=== PATIENT | female | born 1955 | race Two or more races ===

== ENCOUNTER 2024-06-10 10:02 | Emergency (ER) | payer MEDICAID, OTHER ==
[~2024-06-10] VITALS: Ht 144.8 cm; Wt 95.0 kg
[2024-06-10 12:08] LABS: Basophils # (auto) 0 10 ^3/uL (0-0.2); Basophils % (auto) 0.4 % (0.0-2.0); Eosinophils # (auto) 0.1 10 ^3/uL (0-0.8); Eosinophils % (auto) 1.9 % (0.0-7.0); Hematocrit 36.9 % (36.0-46.0); Hemoglobin 12.2 g/dL (12.2-16.2); Lymphocytes # (auto) 1.4 10 ^3/uL (0.4-5.4); Lymphocytes % (auto) 18.7 % (10.0-50.0); Mean Corpuscular Hemoglobin 28.2 pg (28.0-32.0); Mean Corpuscular Volume 85.4 fL (80.0-100.0); Monocytes # (auto) 0.6 10 ^3/uL (0-1.3); Monocytes % (auto) 8.3 % (0.0-12.0); Neutrophils # (auto) 5.3 10 ^3/uL (1.6-8.6); Neutrophils % (auto) 70.7 % (37.0-80.0); Red Blood Cells 4.32 10^6/uL (4.0-5.20); Red Cell Distribution Width 14.6 % (11.8-14.3); White Blood Cell 7.6 10^3/uL (4.4-10.8)
[2024-06-10 12:32] LABS: Alanine Aminotransferase 14 U/L (7-40); Albumin 3.8 g/dL (3.2-4.8); Alkaline Phosphatase 109 U/L (46-116); Anion Gap 6 (5-15); Aspartate Aminotransferase 9 U/L (13-40); BUN/Creatinine Ratio 31.1 (10.0-20.0); Bilirubin, Total 0.4 mg/dL (0.2-1.0); Blood Urea Nitrogen 19 mg/dL (9-23); Calcium 8.9 mg/dL (8.7-10.4); Carbon Dioxide 28 mmol/L (20-30); Chloride 108 mmol/L (98-107); Glucose 136 mg/dL (74-106); Potassium 3.6 mmol/L (3.5-5.1); Sodium 142 mmol/L (136-145); Total Protein 6.3 g/dL (5.7-8.2)
[2024-06-10] MEDS ORDERED: NAPR-1335 PO (13:26)
[2024-06-10] MEDS ORDERED: DOCU-94 PO (13:26)
[2024-06-10] MEDS ORDERED: LIDO5DIS21 TOP (13:26)
[2024-06-10] MEDS ORDERED: HYDR-4902 PO (13:46)
[2024-06-10 13:57] VITALS: TEMP 98.2; O2SAT 97
[2024-06-10] MEDS: KETOROLAC TROMETH 30 MG/ML 1ML VIAL IM ONE (14:05)
[2024-06-10] MEDS: LIDOCAINE 5% TOPICAL PATCH TOP ONE (14:09)
[2024-06-10] MEDS: MORPHINE SULFATE 4 MG/ML SYR/VIAL IV ONE (14:10)
[2024-06-10 14:33] VITALS: BP 109/72; PULSE 82; RESP 15
== END 2024-06-10 14:41 | disposition home or self-care (01) ==
LOC: ER 10:02
DX: M54.32 Sciatica, left side (principal); E11.9 Type 2 diabetes mellitus without complications; I10 Essential (primary) hypertension; Z79.1 Long term (current) use of non-steroidal anti-inflammatories (NSAID); Z88.4 Allergy status to anesthetic agent
CPT/HCPCS: 36415; 72131; 80053; 83605; 85025; 93971; 96372; 96374; 99285; J1885; J2270